=== PATIENT | male | born 1975 | race Caucasian/White ===

== ENCOUNTER 2017-08-18 21:50 | Emergency (ER) | payer MEDICARE ==
[~2017-08-18] VITALS: Ht 182.9 cm; Wt 83.9 kg
[~2017-08-18 21:50] MED LIST: ALDACTONE25 MG PO; AMOXICILLIN875 MG PO; ANALPRAM HC 1%30 GM RECTAL; ANALPRAM HC 1%30 GM TOP; ASPIRIN EC325 M1 PO; ASPIRIN325 PO; ASPIRIN81 M2 PO; BACTRIM DS TAB1 EACH PO; BENTYL 20 MG TA20 M1 PO; CARVEDILOL12.5 MG PO; CARVEDILOL6.25 MG PO; CATAPRES0.1 MG PO; CEPHALEXIN 500500 M3 PO; CIPRODEX OTIC7.5 ML; CIPROFLOXACIN500 M1 PO; CLONAZEPAM 0.50.5 M1 PO; CLONAZEPAM 1 MG1 M1; CLONAZEPAM 1 MG1 M1 PO; CRESTOR10 MG PO; CYMBALTA20 MG; DILAUDID4 MG PO; EFFIENT10 MG PO; FENOFIBRATE160 MG PO; FIBER PO; FISH OIL 1,001000 M1 PO; FISH OIL 1,001000 M2 PO; FISH OIL 1,2001 EAC3 PO; FISH OIL SOFTG1 EACH PO; FLAGYL500 MG PO; FLOMAX0.4 MG PO; GABAPENTIN 100100 MG PO; HYDROCODON-ACE1 EAC4 PO; HYDROCODON-ACE1 EAC7 PO; HYDROCODONE-AP1 EAC6 PO; IMDUR 30 MG TAB30 M1 PO; KEFLEX500 MG PO; LEVOTHYROXINE 0.1 MG; LEVOTHYROXINE50 MCG PO; LISINOPRIL PO; LISINOPRIL10 MG PO; LIVALO2 MG PO; LIVALO4 MG PO; MULTIVITAMINS PO; NIACIN 500 MG500 M1 PO; NIASPAN ER 101000 M1 PO; NITROGLYCERIN0.4 MG SL; NITROGLYCERIN0.4 MG SUBLING; NORCO 10-325 T1 EACH PO; NORCO 5-325 TA1 EAC1 PO; NORCO 5-325 TA1 EACH PO; OXYCODONE HCL 55 MG PO; OXYCODONE HCL10 MG PO; OXYCONTIN20 M1 PO; PAXIL40 MG PO; PERCOCET 5-3251 EACH PO; PERCOCET 7.5-31 EACH PO; PERCOCET PO; PHENERGAN 25 MG25 M1 PO; PREDNISONE 20 M20 M1 PO; PREDNISONE 20 M20 MG; PREDNISONE50 MG PO; PRILOSEC PO; PROPRANOLOL 1010 MG; PROTONIX40 M1 PO; PROZAC 20 MG20 MG PO; PROZAC40 MG PO; REMICADE 1100 MG/VIA; REQUIP 1 MG TABL1 M1; REQUIP 1 MG TABL1 M1 PO; SEROQUEL200 MG PO; SPIRONOLACT/HCT1 TA1 PO; SYNTHROID50 MCG PO; TRIAMCINOLONE CREAM TOP; ULTRAM 50MG TAB50 MG PO; UNICOMPLEX M TA1 TA1 PO; VITAMIN C PO; WELLBUTRIN SR150 MG; WELLBUTRIN SR150 MG PO; ZOFRAN ODT4 MG PO; ZOFRAN ODT4 MG SUBLING
[2017-08-18] MEDS ORDERED: REMICADE 1100 MG/VIA INJECTION (21:58)
[2017-08-18] MEDS ORDERED: NORCO 5-325 TA1 EACH PO (22:45)
[2017-08-18 22:52] VITALS: BP 152/99
== END 2017-08-18 22:53 | disposition home or self-care (01) ==
LOC: M.ERS 21:50
DX: S60.222A Contusion of left hand, initial encounter (principal); F32.9 Major depressive disorder, single episode, unspecified; G25.81 Restless legs syndrome; I10 Essential (primary) hypertension; E78.00 Pure hypercholesterolemia, unspecified; F17.220 Nicotine dependence, chewing tobacco, uncomplicated; Z88.1 Allergy status to other antibiotic agents; Z88.5 Allergy status to narcotic agent

== ENCOUNTER 2019-10-07 01:26 | Emergency (ER) | payer MEDICARE ==
[~2019-10-07] VITALS: Ht 182.9 cm; Wt 99.8 kg
[~2019-10-07 01:26] MED LIST changes: +REMICADE 1100 MG/VIA INJECTION
[2019-10-07 02:17] LABS: ABSOLUTE BASOPHILS 0.1 thou/uL (0.0-0.2); ABSOLUTE EOSINOPHILS 0.5 thou/uL (0.0-0.7); ABSOLUTE LYMPHOCYTES 1.8 thou/uL (0.8-5.3); ABSOLUTE MONOCYTES 0.7 thou/uL (0.0-1.2); ABSOLUTE NEUTROPHILS 6.8 thou/uL (1.6-8.1); BASOPHILS 0.6 %; EOSINOPHILS 4.6 %; HEMATOCRIT 41.5 % (42.0-52.0); HEMOGLOBIN 14.2 gm/dL (14.0-18.0); LYMPHOCYTES 18.6 %; MCH 30.6 pg (26.0-34.0); MCHC 34.3 g/dL (28.0-37.0); MCV 89.2 fL (80.0-100.0); MONOCYTES 7.4 %; MPV 8.1 fl. (7.2-11.1); NUCLEATED RBCS 0 /100WBC; PLATELET COUNT* 295 thou/uL (150-400); POLYS 68.8 %; RBC 4.65 mil/uL (4.50-6.00); RDW-CV 14.4 % (10.5-14.5); WBC 9.9 thou/uL (4.0-11.0)
[2019-10-07 02:20] LABS: CALCIUM 8.8 mg/dL (8.5-10.1); CREATININE 0.9 mg/dL (0.6-1.3); POTASSIUM 3.5 mmol/L (3.5-5.1)
[2019-10-07 02:25] LABS: ALBUMIN 4.1 g/dL (3.4-5.0); TOTAL BILIRUBIN 0.3 mg/dL (<0.1-1.0); TOTAL PROTEIN 7.9 g/dL (6.4-8.2)
[2019-10-07 02:59] LABS: URINE BILIRUBIN NEGATIVE (Negative); URINE BLOOD NEGATIVE (Negative); URINE CLARITY CLEAR; URINE COLOR STRAW; URINE GLUCOSE-RANDOM NEGATIVE (Negative); URINE KETONES NEGATIVE (Negative); URINE LEUKOCYTES-REFLEX NEGATIVE (Negative); URINE NITRITE-REFLEX NEGATIVE (Negative); URINE PROTEIN NEGATIVE (Negative); URINE SPECIFIC GRAVITY <= 1.005 (1.005-1.030); URINE UROBILINOGEN 0.2 E.U./dl (0.2-1.0)
[2019-10-07 03:08] LABS: AMP/METHAMP Negative (Negative); BARBITURATES Negative (Negative); BENZODIAZEPINES Negative (Negative); COCAINE Negative (Negative); METHADONE Negative (Negative); OPIATES Negative (Negative); PCP Negative (Negative); THC Negative (Negative)
[2019-10-07 03:21] LABS: ESR (SEDRATE) 14 mm/hr (0-15)
[2019-10-07] MEDS ORDERED: OXYCODON-ACETA1 EAC1 PO (03:48)
[2019-10-07 04:18] VITALS: BP 122/64
== END 2019-10-07 04:20 | disposition home or self-care (01) ==
LOC: M.ERS 01:26
PROVIDERS: Emergency Medicine
DX: K50.10 Crohn's disease of large intestine without complications (principal); R19.7 Diarrhea, unspecified; G25.81 Restless legs syndrome; I10 Essential (primary) hypertension; E78.00 Pure hypercholesterolemia, unspecified; F17.220 Nicotine dependence, chewing tobacco, uncomplicated; Z90.49 Acquired absence of other specified parts of digestive tract; Z88.5 Allergy status to narcotic agent; Z88.8 Allergy status to other drugs, medicaments and biological substances; Z79.899 Other long term (current) drug therapy